=== PATIENT | female | born 1965 | race African-American/Black ===

== ENCOUNTER 2018-10-17 19:56 | Inpatient (IN) | payer OTHER ==
[~2018-10-17] VITALS: Ht 170.2 cm; Wt 96.7 kg
[2018-10-17 21:37] LABS: BASO # 0.1 (0.0-0.2); BASO % 0.4 % (0.0-2.0); EOS # 0.1 (0.0-0.7); EOS % 0.4 % (0-4.0); GRAN # 11.8 (1.4-6.5); GRAN % 84.4 % (42.2-75.2); HEMATOCRIT 39.9 % (37.0-47.0); HEMOGLOBIN 13.4 g/dl (12.5-16.0); LYMPH # 1.3 (1.2-3.4); LYMPH % 9.6 % (20.0-51.0); MEAN CELL VOLUME 89 fl (80.0-100.0); MEAN CORPUSCULAR HEMOGLOBIN 30 pg (27.0-31.0); MEAN CORPUSCULAR HGB CONC 34 g/dl (33.0-37.0); MEAN PLATELET VOLUME 9.7 fl (7.4-10.4); MONO # 0.7 (0.1-0.6); MONO % 4.7 % (1.7-9.3); PLATELET COUNT 318 K/mm3 (130-400); REDCELL DISTRIBUTION WIDTH-CV 13.2 % (11.5-14.5)
[2018-10-17 21:49] LABS: ALANINE AMINOTRANSFERASE 22 U/L (9-52); ALKALINE PHOSPHATASE 114 U/L (50-136); ANION GAP 8 mmol/L (7-16); AST,SGOT 14 U/L (15-37); BILIRUBIN,TOTAL 0.2 mg/dL (0.0-1.0); BLOOD UREA NITROGEN 11 mg/dL (7-17); CALCIUM 9.1 mg/dL (8.4-10.2); CARBON DIOXIDE 28 mmol/L (22-30); CHLORIDE 103 mmol/L (98-107); GLUCOSE 198 mg/dL (74-106); POTASSIUM 4.4 mmol/L (3.4-5.0); SODIUM 139 mmol/L (137-145); TOTAL PROTEIN 7.3 gm/dL (6.4-8.2)
[2018-10-17 22:00] LABS: TROPONIN-I < 0.012 ng/mL (0.000-0.034)
[2018-10-17 23:04] LABS: GLUCOSE,CSF 94 mg/dL (40-70); TOTAL PROTEIN,CSF 48 mg/dL (15-45)
[2018-10-18 00:17] LABS: CSF APPEARANCE CLEAR; CSF COLOR COLORLESS
[2018-10-18 00:18] LABS: CSF APPEARANCE CLEAR; CSF COLOR COLORLESS; CSF RBC 3 /mm3 (0-0); CSF RBC 4 /mm3 (0-0)
[2018-10-18] MEDS ORDERED: PLAVIX 75MG TAB75 MG PO (00:28)
[2018-10-18] MEDS ORDERED: ASPIRIN 81M81 MG/TA2 PO (00:28)
[2018-10-18] MEDS ORDERED: GLUCOPHAGE1000 MG PO (00:29)
[2018-10-18] MEDS ORDERED: DESYREL DIVIDO150 M1 PO (00:30)
[2018-10-18] MEDS ORDERED: REGLAN 10MG10 MG/TAB PO (00:30)
[2018-10-18] MEDS ORDERED: COZAAR 50MG50 MG/TAB PO (00:30)
[2018-10-18] MEDS ORDERED: PEPCID 20MG TAB20 MG PO (00:31)
[2018-10-18] MEDS ORDERED: SENOKOT S 50 MG1 TAB PO (00:31)
[2018-10-18] MEDS ORDERED: LOPRESSOR 225 MG/TAB PO (00:32)
[2018-10-18] MEDS ORDERED: DULCOLAX STOOL100 MG PO (00:32)
[2018-10-18] MEDS ORDERED: LEXAPRO20 MG PO (00:33)
[2018-10-18] MEDS ORDERED: IMDUR 60MG60 MG/TAB PO (00:33)
[2018-10-18] MEDS ORDERED: ZOCOR 40MG40 MG PO (00:33)
[2018-10-18] MEDS ORDERED: ULTRAM 50MG TAB50 MG (00:34)
[2018-10-18] MEDS ORDERED: NITROSTAT0.4 MG/TAB SL (00:35)
[2018-10-18] MEDS ORDERED: NORCO 325 MG-7.1 TAB PO (00:35)
[2018-10-18] MEDS ORDERED: NEURONTIN300 MG/CAP PO (00:36)
[2018-10-18] MEDS ORDERED: PROTONIX 40MG T40 MG PO (00:37)
[2018-10-18] MEDS ORDERED: LEVEMIR100 U/ML SQ ×2 (00:39→18:03)
[2018-10-18] MEDS ORDERED: HUMALOG100 U/ML (00:40)
[2018-10-18 00:45] LABS: CSF MONONUCLEAR 16 % (70-100); CSF POLYMORPHONUCLEAR 84 % (0-6)
[2018-10-18 00:48] LABS: CSF MONONUCLEAR 22 % (70-100); CSF POLYMORPHONUCLEAR 68 % (0-6)
[2018-10-18 04:18] VITALS: BP 131/66; PULSE 89; TEMP 98.8
[2018-10-18] MEDS ORDERED: RANEXA1000 MG PO (05:52)
[2018-10-18 06:14] LABS: INR 1.1 (0.8-3.0); PROTHROMBIN TIME 12.1 SECONDS (9.7-12.8)
[2018-10-18 06:17] LABS: PARTIAL THROMBOPLASTIN TIME 31.5 SECONDS (26.0-37.0)
[2018-10-18 07:42] VITALS: BP 150/92; PULSE 93; TEMP 98.1
[2018-10-18 10:51] LABS: COLLECTION METHOD CLEAN CATCH
[2018-10-18 11:17] LABS: MUCOUS Present /lpf; PH 6 (5-8); URINE APPEARANCE Clear; URINE BACTERIA Rare /hpf; URINE BILIRUBIN Negative (NEGATIVE); URINE BLOOD Negative (NEGATIVE); URINE COLOR Yellow; URINE GLUCOSE 3+ (NEGATIVE); URINE KETONE Negative (NEGATIVE); URINE LEUKOCYTE ESTERASE 1+ (NEGATIVE); URINE NITRATE Negative (NEGATIVE); URINE PROTEIN(semi-quant) Negative (NEGATIVE); URINE UROBILINOGEN Negative (NEGATIVE)
[2018-10-18 12:29] VITALS: BP 139/66; PULSE 94; TEMP 97.8
[2018-10-18 15:12] VITALS: BP 154/84; PULSE 92; TEMP 97.9
[2018-10-18 20:15] VITALS: BP 150/77; PULSE 84; TEMP 98.5
[2018-10-19] VITALS (8 sets, daily range): BP systolic 132–176; BP diastolic 71–92; PULSE 52–94; TEMP 97.7–98.5
[2018-10-19 06:17] LABS: BASO % 0.1 % (0.0-2.0); GRAN # 12.8 (1.4-6.5); GRAN % 83.7 % (42.2-75.2); HEMOGLOBIN 11.8 g/dl (12.5-16.0); LYMPH # 1.4 (1.2-3.4); LYMPH % 9.1 % (20.0-51.0); MEAN CELL VOLUME 89 fl (80.0-100.0); MEAN CORPUSCULAR HEMOGLOBIN 30 pg (27.0-31.0); MEAN CORPUSCULAR HGB CONC 34 g/dl (33.0-37.0); MEAN PLATELET VOLUME 9.7 fl (7.4-10.4); MONO % 6.6 % (1.7-9.3); PLATELET COUNT 327 K/mm3 (130-400); RED BLOOD COUNT 3.93 M/mm3 (4.10-5.30); REDCELL DISTRIBUTION WIDTH-CV 13.2 % (11.5-14.5)
[2018-10-19 06:19] LABS: HEMATOCRIT 34.9 % (37.0-47.0)
[2018-10-19 06:27] LABS: ANION GAP 7 mmol/L (7-16); BLOOD UREA NITROGEN 14 mg/dL (7-17); CALCIUM 8.3 mg/dL (8.4-10.2); CARBON DIOXIDE 23 mmol/L (22-30); CHLORIDE 107 mmol/L (98-107); CREATININE, serum 0.59 mg/dL (0.52-1.25); GLUCOSE 290 mg/dL (74-106); POTASSIUM 4.1 mmol/L (3.4-5.0); SODIUM 138 mmol/L (137-145)
[2018-10-19 06:40] LABS: TROPONIN-I < 0.012 ng/mL (0.000-0.034)
[2018-10-20 00:54] VITALS: BP 126/76; PULSE 82; TEMP 97.7
[2018-10-20 03:59] VITALS: BP 135/80; PULSE 86; TEMP 98.4
[2018-10-20 06:28] LABS: BASO # 0.1 (0.0-0.2); BASO % 0.6 % (0.0-2.0); EOS # 0.1 (0.0-0.7); EOS % 0.4 % (0-4.0); GRAN # 8.2 (1.4-6.5); GRAN % 69.1 % (42.2-75.2); HEMOGLOBIN 11.7 g/dl (12.5-16.0); LYMPH # 2.6 (1.2-3.4); LYMPH % 21.7 % (20.0-51.0); MEAN CELL VOLUME 90 fl (80.0-100.0); MEAN CORPUSCULAR HEMOGLOBIN 30 pg (27.0-31.0); MEAN CORPUSCULAR HGB CONC 33 g/dl (33.0-37.0); MEAN PLATELET VOLUME 9.9 fl (7.4-10.4); MONO # 0.9 (0.1-0.6); MONO % 7.8 % (1.7-9.3); PLATELET COUNT 307 K/mm3 (130-400); RED BLOOD COUNT 3.94 M/mm3 (4.10-5.30); REDCELL DISTRIBUTION WIDTH-CV 13.5 % (11.5-14.5)
[2018-10-20 06:31] LABS: HEMATOCRIT 35.5 % (37.0-47.0)
[2018-10-20 06:43] LABS: CALCIUM 8.2 mg/dL (8.4-10.2); CREATININE, serum 0.67 mg/dL (0.52-1.25)
[2018-10-20 08:06] VITALS: BP 127/81; PULSE 88; TEMP 97.8
[2018-10-20 12:04] VITALS: BP 118/70; PULSE 84; TEMP 97.9
[2018-10-20] MEDS ORDERED: NICODERM C21 MG/PATC TD (12:33)
== END 2018-10-20 14:16 | disposition home or self-care (01) | DRG 103 ==
LOC: COL.ER 19:56 → SURG 10-18 03:17
PROVIDERS: Emergency Medicine; Internal Medicine; Nurse Practitioner Family
PROC: 009U3ZX Drainage of Spinal Canal, Percutaneous Approach, Diagnostic (ICD-10-PCS; principal; 2018-10-18)
DX: R51 Headache (principal); Z23 Encounter for immunization; I10 Essential (primary) hypertension; E78.5 Hyperlipidemia, unspecified; I25.10 Atherosclerotic heart disease of native coronary artery without angina pectoris; Z95.5 Presence of coronary angioplasty implant and graft; E11.9 Type 2 diabetes mellitus without complications; Z79.4 Long term (current) use of insulin; F17.210 Nicotine dependence, cigarettes, uncomplicated; K21.9 Gastro-esophageal reflux disease without esophagitis
CPT/HCPCS: 99222-AI; 99232-AI; 99239; J0133; J0290; J0696; J0780; J1100; J1200; J1815; J1885; J3370; J3475; J7030; J7050